=== PATIENT | female | born 1985 | race Caucasian/White ===

== ENCOUNTER 2020-06-29 06:27 | Day surgery (SDC) | payer BC ==
[2020-06-29] VITALS (7 sets, daily range): BP systolic 104–140; BP diastolic 69–118; PULSE 52–67; TEMP 97.7
[~2020-06-29] VITALS: Ht 167.6 cm; Wt 109.0 kg
[~2020-06-29 06:27] MED LIST: MOTRIN 600600 MG/TAB PO; PERCOCET 325 MG1 TA2 PO; PRENATAL1 TA1 PO; Procardia XL PO; TRANDATE 100MG100 MG PO
[2020-06-29] MEDS ORDERED: PROCARDIA XL90 MG PO (07:02)
[2020-06-29] MEDS ORDERED: FLONASE NASAL S16 GM NS (07:02)
[2020-06-29] MEDS ORDERED: MONO-LINYAH 351 TAB PO (07:03)
[2020-06-29 07:28] LABS: HEMATOCRIT 40.9 % (37.0-47.0); HEMOGLOBIN 13.7 g/dl (12.5-16.0); MEAN CELL VOLUME 90 fl (80.0-100.0); MEAN CORPUSCULAR HEMOGLOBIN 30 pg (27.0-31.0); MEAN CORPUSCULAR HGB CONC 34 g/dl (33.0-37.0); MEAN PLATELET VOLUME 12.4 fl (7.4-10.4); PLATELET COUNT 207 K/mm3 (130-400); RED BLOOD COUNT 4.56 M/mm3 (4.10-5.30); REDCELL DISTRIBUTION WIDTH-CV 12.2 % (11.5-14.5)
[2020-06-29 07:39] LABS: PROTHROMBIN TIME 11.1 SECONDS (9.7-12.8)
[2020-06-29 07:48] LABS: CALCIUM 9.4 mg/dL (8.4-10.2); CREATININE, serum 0.76 (0.52-1.25); POTASSIUM 3.8 mmol/L (3.4-5.0)
--- NOTE | 2020-06-29 08:39 | NUR ---
SEE MERGE DOCUMENTATION FOR MEDICATION ADMINISTRATION AND INTRA/POST PROCEDURE SEDATION ASSESSMENTS.
--- NOTE | 2020-06-29 12:25 | NUR ---
Air from TR band removed in 2ml increments with no bleeding from site. Bandaid placed and 2x2 gauze placed over puncture site. Pt sent with arm board. IV site DC'd with catheter intact, and bleeding controlled at site. DC instructions reviewed with pt and , both express understanding. Pt is ambulatory about room with steady gait prior to DC. Tolerating small amount of PO intake without issue. She is assisted out by wheelchair with belongings.
== END 2020-06-29 12:25 | disposition home or self-care (01) ==
LOC: COL.CAR
PROVIDERS: Internal Medicine Cardiovascular Disease
DX: R07.89 Other chest pain (principal); R00.2 Palpitations; I10 Essential (primary) hypertension; E66.9 Obesity, unspecified; Z68.38 Body mass index [BMI] 38.0-38.9, adult; Z20.828 Contact with and (suspected) exposure to other viral communicable diseases; Z79.899 Other long term (current) drug therapy; Z88.0 Allergy status to penicillin; Z88.8 Allergy status to other drugs, medicaments and biological substances
CPT/HCPCS: J1644; J2250; J3010